=== PATIENT | female | born 1995 | race Caucasian/White ===

== ENCOUNTER 2019-07-13 20:55 | Emergency (ER) | payer SELFPAY ==
--- NOTE | 2019-07-13 21:05 | EDM.PDOC ---
<Rikki York E - Last Filed: 07/13/19 21:19> ED HPI GENERAL MEDICAL PROBLEM - General Stated Complaint: POSSIBLY Time Seen by Provider: 07/13/19 21:04 Source of Information: Reports: Patient History Limitations: Reports: No Limitations - History of Present Illness INITIAL COMMENTS - FREE TEXT/NARRATIVE: HISTORY AND PHYSICAL: History of present illness: Patient is a 24-year-old female who presents to the emergency room with complaints of fatigue, irregular menstrual. And concerns of . She states her last menstrual period was May 21 which she states only lasted 2- 4 days and describes it as "very light". She states she has taken "over 30 at home tests which were all negative". She is concerned that they are not accurate as she feels she has symptoms of such as fatigue, occasional intermittent nausea, and occasional dizziness when she stands up too quickly. She states she doesn't have insurance, so she didn't want to make an appointment with PCP at this time. Patient denies any fever, chills, headache, change in vision, syncope or near syncope. Denies any chest pain, back pain, shortness of breath or cough. Denies any abdominal pain, vomiting, diarrhea, constipation or dysuria. Has not noted any blood in urine or stool. Denies any vaginal bleeding, discharge or concerns of STDs. Patient has been eating and drinking appropriately. Review of systems: As per history of present illness and below otherwise all systems reviewed and negative. Past medical history: As per history of present illness and as reviewed below otherwise noncontributory. Surgical history: As per history of present illness and as reviewed below otherwise noncontributory. Social history: See social history for further information Family history: As per history of present illness and as reviewed below otherwise noncontributory. Physical exam: General: Well-developed and well-nourished 24-year-old female. Alert and oriented. Nontoxic appearing and in no acute distress. HEENT: Atraumatic, normocephalic, pupils equal and reactive bilaterally, negative for conjunctival pallor or scleral icterus, mucous membranes moist, TMs normal bilaterally, throat clear, neck supple, nontender, trachea midline. No drooling or trismus noted. No meningeal signs. No hot potato voice noted. Lungs: Clear to auscultation, breath sounds equal bilaterally, chest nontender. Heart: S1S2, regular rate and rhythm without overt murmur Abdomen: Soft, nondistended, nontender. Negative for masses or hepatosplenomegaly. Negative for costovertebral tenderness. Pelvis: Stable nontender. Skin: Intact, warm, dry. No lesions or rashes noted. Extremities: Atraumatic, moves all extremities per self without difficulty or deficits, negative for cords or calf pain. Neurovascular unremarkable. Neuro: Awake, alert, oriented. Cranial nerves II through XII unremarkable. Cerebellum unremarkable. Motor and sensory unremarkable throughout. Exam nonfocal. Notes: My physical examination is within normal limits. Her vital signs are stable. She is currently asymptomatic and states she is here as she does not have insurance but wanted a "more reliable test". All diagnostics were shared with patient. Supportive care measures were reviewed and discussed. Voices understanding and is agreeable to plan of care. Denies any further questions or concerns at this time. Diagnostics: CBC, UA, HCG Therapeutics: None Prescription: None Impression: Encounter for testing Plan: 1. Small frequent sips of fluids to prevent dehydration. Make sure you're eating well-balanced frequent small meals. He may use Tylenol and/or ibuprofen as needed for pain and fever management. 2. Please establish care with a primary care provider or OBGYN for further care and management. 3. Return to the ED as needed and as discussed. Definitive disposition and diagnosis as appropriate pending reevaluation and review of above. - Related Data Allergies Allergy/AdvReac Type Severity Reaction Status Date / Time sulfamethoxazole Allergy Rash Verified 07/13/19 21:11 [From Bactrim] trimethoprim [From Bactrim] Allergy Rash Verified 07/13/19 21:11 Home Meds: Home Meds . [No Known Home Meds] 07/13/19 [History] ED ROS GENERAL - Review of Systems Review Of Systems: Comprehensive ROS is negative, except as noted in HPI. ED EXAM, GENERAL - Physical Exam Exam: See Below (See dictation) Course - Vital Signs Last Recorded V/S: Last Vital Signs Temp 36.3 C 07/13/19 20:55 Pulse 105 H 07/13/19 20:55 Resp 18 07/13/19 20:55 BP 141/89 H 07/13/19 20:55 Pulse Ox 95 07/13/19 20:55 - Orders/Labs/Meds Orders: Active Orders 24 hr Category Date Time Status CBC WITH AUTO DIFF [HEME] Stat Lab 07/13/19 21:15 Results CULTURE URINE [RM] Stat Lab 07/13/19 21:06 Received Labs: Laboratory Tests 07/13/19 07/13/19 07/13/19 Range/Units 21:06 21:06 21:15 WBC 12.54 H (4.0-11.0) K/uL RBC 4.93 (4.30-5.90) M/uL Hgb 13.3 (12.0-16.0) g/dL Hct 40.3 (36.0-46.0) % MCV 81.7 (80.0-98.0) fL MCH 27.0 (27.0-32.0) pg MCHC 33.0 (31.0-37.0) g/dL RDW Std Deviation 46.6 (28.0-62.0) fl RDW Coeff of [place] 16 H (11.0-15.0) % Plt Count 268 (150-400) K/uL MPV 11.50 (7.40-12.00) fL Add Manual Diff YES Nucleated RBC % 0.0 /100WBC Nucleated RBCs # 0 K/uL Urine Color YELLOW Urine Appearance CLEAR Urine pH 6.0 (5.0-8.0) Ur Specific [place] 1.015 (1.001-1.035) Urine Protein NEGATIVE (NEGATIVE) mg/dL Urine Glucose (UA) NEGATIVE (NEGATIVE) mg/dL Urine Ketones NEGATIVE (NEGATIVE) mg/dL Urine Occult Blood NEGATIVE (NEGATIVE) Urine Nitrite NEGATIVE (NEGATIVE) Urine Bilirubin NEGATIVE (NEGATIVE) Urine Urobilinogen 0.2 (<2.0) EU/dL Ur Leukocyte Esterase TRACE H (NEGATIVE) Urine RBC 0-2 (0-2/HPF) Urine WBC 2-4 (0-5/HPF) Ur Epithelial Cells FEW (NONE-FEW) Urine Bacteria RARE (NEGATIVE) Urine HCG, Qual NEGATIVE (NEGATIVE) Departure - Departure Disposition: Home, Self-Care 01 Clinical Impression: Encounter for test - Discharge Information Additional Instructions: The following information is given to patients seen in the emergency department who are being discharged to home. This information is to outline your options for follow-up care. We provide all patients seen in our emergency department with a follow-up referral. The need for follow-up, as well as the timing and circumstances, are variable depending upon the specifics of your emergency department visit. If you don't have a primary care physician on staff, we will provide you with a referral. We always advise you to contact your personal physician following an emergency department visit to inform them of the circumstance of the visit and for follow-up with them and/or the need for any referrals to a consulting specialist. The emergency department will also refer you to a specialist when appropriate. This referral assures that you have the opportunity for follow-up care with a specialist. All of these measure are taken in an effort to provide you with optimal care, which includes your follow-up. Under all circumstances we always encourage you to contact your private physician who remains a resource for coordinating your care. When calling for follow-up care, please make the office aware that this follow-up is from your recent emergency room visit. If for any reason you are refused follow-up, please contact the [facility] at and asked to speak to the emergency department charge nurse. [facility] [address] [place] [address] [place] [address] 1. Small frequent sips of fluids to prevent dehydration. Make sure you're eating well-balanced frequent small meals. He may use Tylenol and/or ibuprofen as needed for pain and fever management. 2. Please establish care with a primary care provider or OBGYN for further care and management. 3. Return to the ED as needed and as discussed. <Cl Garcia - Last Filed: 07/13/19 21:32> ED HPI GENERAL MEDICAL PROBLEM lower abdomen Pain Score (Numeric/FACES): 3 Departure - Departure Time of Disposition: 21:32
== END 2019-07-13 21:32 | disposition home or self-care (01) ==
LOC: MW.ED 20:55
DX: Z32.02 Encounter for pregnancy test, result negative (principal); Z88.1 Allergy status to other antibiotic agents
CPT/HCPCS: 36415; 81001; 81025; 85025; 87086; 99282; 99284

== ENCOUNTER 2023-10-02 09:21 | Emergency (ER) | payer BC ==
[2023-10-02] MEDS: Morphine 4 MG/ML Syringe IVPUSH ONE (09:57)
[2023-10-02] MEDS: Sodium Chloride 0.9% 1,000 ML IV ONE ×3 (09:57→14:12)
[2023-10-02] MEDS: Ondansetron 4 MG/2 ML SDV IVPUSH ONE ×2 (09:58→12:14)
[2023-10-02] MEDS: Famotidine 20 MG/2 ML SDV IVPUSH ONE (09:58)
[2023-10-02] MEDS: Ketorolac 30 MG/ML SDV IVPUSH ONE (09:58)
[2023-10-02 10:07] LABS: BASOPHILS ABSOLUTE AUTO 0.03 K/uL (0.00-0.20); BASOPHILS PERCENT AUTO 0.2 % (0.0-1.0); EOSINOPHILS ABSOLUTE AUTO 0.09 K/uL (0.00-0.45); EOSINOPHILS PERCENT AUTO 0.6 % (0.0-6.0); HEMATOCRIT 46.1 % (37.0-47.0); HEMOGLOBIN 15.2 g/dL (12.0-16.0); IMMATURE GRAN ABSOLUTE AUTO 0.05 K/uL (0.00-0.05); IMMATURE GRAN PERCENT AUTO 0.3 % (0.0-0.4); LYMPHOCYTES ABSOLUTE AUTO 1.32 K/uL (1.00-4.80); LYMPHOCYTES PERCENT AUTO 8.9 % (24.0-44.0); MEAN PLATELET VOLUME 11.4 fL (9.4-12.3); MONOCYTES ABSOLUTE AUTO 0.44 K/uL (0.00-0.80); NEUTROPHILS ABSOLUTE AUTO 12.96 K/uL (1.80-7.70); PLATELET COUNT,PLT 274 K/uL (150-400); RED BLOOD CELL COUNT 5.62 M/uL (4.10-5.30); WHITE BLOOD CELL COUNT,WBC 14.89 K/uL (3.9-11.3)
[2023-10-02 10:08] LABS: APPEARANCE,URINE CLEAR; BILIRUBIN,URINE NEGATIVE (NEGATIVE); COLOR,URINE YELLOW; GLUCOSE,URINE NEGATIVE (NEGATIVE); KETONES,URINE NEGATIVE (NEGATIVE); LEUKOCYTE ESTERASE,URINE TRACE (NEGATIVE); NITRITE,URINE POSITIVE (NEGATIVE); OCCULT BLOOD,URINE NEGATIVE (NEGATIVE); PROTEIN,URINE NEGATIVE (NEGATIVE); UROBILINOGEN,URINE 0.2 EU/dL (<2.0)
[2023-10-02 10:24] LABS: BACTERIA,URINE FEW (NEGATIVE); EPITHELIAL CELLS,URINE RARE (NONE-FEW); RBC,URINE 0-1 (0-2/HPF); WBC,URINE 0-2 (0-5/HPF)
[2023-10-02 10:39] LABS: A/G RATIO 0.8 (0.9-1.6); ALBUMIN 3.8 g/dL (3.4-5.0); BILIRUBIN TOTAL 0.5 mg/dL (0.2-1.0); CALCIUM 9.6 mg/dL (8.5-10.1); CARBON DIOXIDE,CO2 22.9 mmol/L (21.0-32.0); CREATININE 0.9 mg/dL (0.6-1.0); EST CRCL DRUG DOSING (CG) 88.68 mL/min; MAGNESIUM 1.5 mg/dL (1.8-2.4); PROTEIN TOTAL,TP 8.4 g/dL (6.4-8.2)
[2023-10-02 10:47] LABS: CORONAVIRUS COVID-19 NAA NEGATIVE (NEGATIVE); INFLUENZA A NAA NEGATIVE (NEGATIVE); INFLUENZA B NAA NEGATIVE (NEGATIVE)
[2023-10-02] MEDS: Iopamidol 755 MG/ML 500 ML Multipack Bottle IVPUSH STA (11:33)
[2023-10-02] MEDS: droPERidol 5 MG/2 ML SDV IVPUSH ONE (14:06)
== END 2023-10-02 15:02 | disposition home or self-care (01) ==
LOC: MW.ED 09:21
DX: K52.9 Noninfective gastroenteritis and colitis, unspecified (principal); Z88.2 Allergy status to sulfonamides
CPT/HCPCS: 0240U; 36415; 74177; 80053; 81001; 83690; 83735; 84703; 85025; 96361; 96374; 96375; 96376; 99284; J1790; J1885; J2270; J2405; J3490; J7030; Q9967